=== PATIENT | male | born 1985 | race Caucasian/White ===

== ENCOUNTER 2017-12-29 21:36 | Emergency (ER) | payer OTHER ==
[~2017-12-29] VITALS: Ht 166.4 cm; Wt 59.0 kg
[2017-12-29 21:39] VITALS: BP 146/64
[2017-12-29] MEDS ORDERED: PENI500T PO (21:50)
--- NOTE | 2017-12-29 21:50 | PHYS DOC ---
Adult General Chief Complaint Chief Complaint: DENTAL PROBLEM HPI HPI Patient is a 32 year old M who presents with left lower jaw swelling and tenderness. Patient reports onset about 2 days ago. He denies dental pain. Additionally, he reports muffled hearing in the left ear. Review of Systems Review of Systems Constitutional: Denies fever or chills [] HENT: Facial swelling, muffled hearing, denies dental pain Respiratory: Denies cough or shortness of breath [] Cardiovascular: No additional information not addressed in HPI [] Integument: Denies rash or skin lesions [] All other systems were reviewed and found to be within normal limits, except as documented in this note. Allergies Allergies Allergies Coded Allergies Type Severity Reaction Last Updated Verified No Known Drug Allergies 12/29/17 No Physical Exam Physical Exam Constitutional: Well developed, well nourished, no acute distress, non-toxic appearance. [] HENT: Normocephalic, atraumatic, Left external ear canal impacted with cerumen, oropharynx moist, no oral exudates, poor dentition with various areas of decay, swelling at the angle of the left jaw, no overlying erythema or warmth Eyes: PERRLA, EOMI, conjunctiva normal, no discharge. [] Neck: Normal range of motion, no tenderness, supple, no stridor. [] Skin: Warm, dry, no erythema, no rash. [] Neurologic: Alert and oriented X 3, normal motor function, normal sensory function, no focal deficits noted. [] Psychologic: Affect normal, judgement normal, mood normal. [] Current Patient Data Vital Signs Vital Signs Date Time Temp Pulse Resp B/P (MAP) Pulse Ox O2 Delivery O2 Flow Rate FiO2 12/29/17 21:39 98.9 80 16 146/64 (91) 98 Room Air 98.9 EKG EKG [] Radiology/Procedures Radiology/Procedures [] Course & Med Decision Making Course & Med Decision Making Pertinent Labs and Imaging studies reviewed. (See chart for details) Plan: pen vk rx, f/u with PCP, return precautions reviewed Tai Disclaimer Tai Disclaimer This electronic medical record was generated, in whole or in part, using a voice recognition dictation system. Departure Departure Impression: Primary Impression: Jaw swelling Additional Impressions: Poor dentition Cerumen impaction Disposition: HOME, SELF-CARE Condition: GOOD Patient Instructions: Cerumen Impaction, Dental Abscess Scripts Penicillin V Potassium (PENICILLIN V POTASSIUM) 500 Mg Tablet 1 TAB PO QID, #40 TAB Prov: SKY ORTEGA APRN 12/29/17 Problem Qualifiers Additional Impressions: Cerumen impaction Laterality: left Qualified Codes: H61.22 - Impacted cerumen, left ear SKY ORTEGA APRN Dec 29, 2017 21:50
== END 2017-12-29 22:35 | disposition home or self-care (01) ==
LOC: ER 21:36
DX: H61.22 Impacted cerumen, left ear (principal); M27.8 Other specified diseases of jaws; K08.89 Other specified disorders of teeth and supporting structures
CPT/HCPCS: 69209; 99283